=== PATIENT | male | born 1995 | race Caucasian/White ===

== ENCOUNTER 2018-06-22 10:35 | Emergency (ER) | payer OTHER ==
[~2018-06-22] VITALS: Ht 185.4 cm; Wt 79.4 kg
[2018-06-22 10:54] VITALS: Ht 185.4 cm; Wt 79.4 kg
[2018-06-22 13:08] VITALS: BP 131/91
== END 2018-06-22 13:06 | disposition home or self-care (01) ==
LOC: ED 10:35
DX: L60.0 Ingrowing nail (principal); J45.909 Unspecified asthma, uncomplicated
CPT/HCPCS: J2001; Q0092

== ENCOUNTER 2018-08-21 13:38 | Emergency (ER) | payer OTHER ==
[~2018-08-21] VITALS: Ht 182.9 cm; Wt 80.7 kg
[2018-08-21 13:44] VITALS: Ht 182.9 cm; Wt 80.7 kg
[2018-08-21 15:57] LABS: BASOPHIL % 0.2 % (0-2); PLATELET COUNT 256 x10^3mcL (130-400); RED CELL DISTRIBUTION WIDTH 12.8 % (11.5-14.5)
[2018-08-21 15:59] LABS: CALCIUM 9.2 mg/dL (8.5-10.1); CARBON DIOXIDE 27.3 mmol/L (21-32); CHLORIDE SERUM 104 mmol/L (98-107); CREATININE SERUM 0.9 mg/dL (0.7-1.3); GFR1 > 60 mL/min; GLUCOSE SERUM 88 mg/dL (74-106); POTASSIUM SERUM 3.6 mmol/L (3.5-5.1); SODIUM SERUM 141 mmol/L (136-145)
[2018-08-21 16:05] LABS: ALBUMIN 3.9 g/dL (3.4-5.0); ALKALINE PHOSPHATASE 69 U/L (46-116); ALT/SGPT 23 U/L (16-63); AST/SGOT 10 U/L (15-37); BILIRUBIN TOTAL 0.46 mg/dL (0.20-1.00); LIPASE 93 IU/L (73-393); TOTAL PROTEIN, SERUM 7.6 g/dL (6.4-8.2)
[2018-08-21 17:06] VITALS: BP 112/60
== END 2018-08-21 17:06 | disposition home or self-care (01) ==
LOC: ED 13:38
PROVIDERS: Emergency Medicine
DX: R10.9 Unspecified abdominal pain (principal)
CPT/HCPCS: 36415

== ENCOUNTER 2018-10-27 09:10 | Emergency (ER) | payer OTHER ==
[~2018-10-27] VITALS: Ht 182.9 cm; Wt 79.4 kg
[2018-10-27 09:12] VITALS: Ht 182.9 cm; Wt 79.4 kg
[2018-10-27 11:20] VITALS: BP 118/79
== END 2018-10-27 11:20 | disposition home or self-care (01) ==
LOC: ED 09:10
DX: L60.0 Ingrowing nail (principal)
CPT/HCPCS: 90715; J2001

== ENCOUNTER 2019-04-15 16:15 | Emergency (ER) | payer OTHER ==
[~2019-04-15] VITALS: Ht 185.4 cm; Wt 82.6 kg
[2019-04-15 16:29] VITALS: Ht 185.4 cm; Wt 82.6 kg
[2019-04-15 18:37] VITALS: BP 109/54
== END 2019-04-15 18:37 | disposition home or self-care (01) ==
LOC: ED 16:15
DX: J11.1 Influenza due to unidentified influenza virus with other respiratory manifestations (principal); R42 Dizziness and giddiness
CPT/HCPCS: J7030

== ENCOUNTER 2019-06-10 12:28 | Emergency (ER) | payer OTHER ==
[~2019-06-10] VITALS: Ht 182.9 cm; Wt 80.7 kg
[2019-06-10 12:40] VITALS: BP 132/75; Ht 182.9 cm; Wt 80.7 kg
== END 2019-06-10 13:21 | disposition home or self-care (01) ==
LOC: ED 12:28
DX: L60.0 Ingrowing nail (principal); J45.909 Unspecified asthma, uncomplicated

== ENCOUNTER 2019-07-19 12:14 | Emergency (ER) | payer OTHER ==
[~2019-07-19] VITALS: Ht 182.9 cm; Wt 81.2 kg
[2019-07-19 12:43] VITALS: Ht 182.9 cm; Wt 81.2 kg
[2019-07-19 15:17] VITALS: BP 110/65
== END 2019-07-19 15:17 | disposition home or self-care (01) ==
LOC: ED 12:14
DX: L60.0 Ingrowing nail (principal); J45.909 Unspecified asthma, uncomplicated
CPT/HCPCS: J2001

== ENCOUNTER 2019-11-19 08:18 | Emergency (ER) | payer OTHER ==
[~2019-11-19] VITALS: Ht 182.9 cm; Wt 86.6 kg
[2019-11-19 10:46] VITALS: BP 115/79
== END 2019-11-19 10:46 | disposition home or self-care (01) ==
LOC: ED 08:18
DX: L60.0 Ingrowing nail (principal); J45.909 Unspecified asthma, uncomplicated
CPT/HCPCS: J2001